=== PATIENT | male | born 1950 | race Caucasian/White ===

== ENCOUNTER 2023-05-05 09:25 | Emergency (ER) | payer MEDICARE, OTHER ==
[2023-05-05 09:31] VITALS: BP 148/59; PULSE 61
[2023-05-05] MEDS ORDERED: Diphtheria,Pertussis(Acell),Tetanus Vaccine 0.5 ML Syringe IM ONE (11:16)
[2023-05-05] MEDS ORDERED: Lidocaine 1% with EPINEPHrine 1:100,000 50 ML MDV INFILT ONE (11:36)
[2023-05-05] MEDS ORDERED: Bacitracin Oint 1 GM U/D Packet TOP ONE (13:07)
== END 2023-05-05 13:42 | disposition home or self-care (01) ==
LOC: JP.ED 09:25
DX: S81.811A Laceration without foreign body, right lower leg, initial encounter (principal); I10 Essential (primary) hypertension; Z79.899 Other long term (current) drug therapy; Z88.0 Allergy status to penicillin; W18.40XA Slipping, tripping and stumbling without falling, unspecified, initial encounter
CPT/HCPCS: 12032; 73590-26-RT; 73590-RT; 73610-26-RT; 73610-RT; 90471; 90715; 99283; 99284-25